=== PATIENT | female | born 1980 | race American Indian/Alaskan Native ===

== ENCOUNTER 2021-02-01 05:54 | Emergency (ER) | payer SELFPAY ==
[2021-02-01] MEDS ORDERED: ASPIRIN 325 MG TAB PO ONE (06:18)
--- NOTE | 2021-02-01 06:28 | Emergency Department Report ---
ED Chest Pain HPI - General Chief Complaint: Chest Pain Stated Complaint: WEAKNESS Time Seen by Provider: 02/01/21 06:23 Source: patient Mode of arrival: Ambulatory Limitations: No Limitations - History of Present Illness Initial Comments: Chief complaint: "Ever so often my potassium drops. I feel terrible." HPI: This is a 40-year-old female with a history of anemia hypokalemia, uterine polyps who presents with chest pain abdominal pain General malaise since this morning. Patient wasn't her normal state of health yesterday. She developed chest pain this morning. She felt like there is a gas bubble in the center of her chest. Mild discomfort without radiation. She denies palpitations. She denies near syncope. This morning she also developed cramping abdominal pain with vaginal bleeding. Last menstrual period 2 weeks ago which lasted 7 days. She normally has regular menstrual cycles. Cramping sore feeling in her abdomen. Patient exposure to Covid fever headache cough vomiting diarrhea. She does not have she did not have exposure to Covid-19 MD Complaint: chest pain -: Gradual, This morning Onset: during rest Pain Location: substernal Severity: moderate Severity scale (0 -10): 5 Quality: dull Consistency: constant Improves With: nothing Worsens With: nothing - Related Data Allergies Allergy/AdvReac Type Severity Reaction Status Date / Time duloxetine [From Cymbalta] Allergy Hives Verified 02/01/21 06:12 Heart Score - HEART Score History: Slightly suspicious EKG: Normal Age: < 45 Risk factors: No known risk factors Troponin: < normal limit HEART Score: 0 ED Review of Systems ROS: Stated complaint: WEAKNESS Other details as noted in HPI Comment: All other systems reviewed and negative Constitutional: malaise. denies: fever Respiratory: denies: cough, shortness of breath Cardiovascular: chest pain Gastrointestinal: abdominal pain Genitourinary: abnormal menses ED Past Medical Hx - Past Medical History Previous Medical History?: Yes Additional medical history: Anemia. Hypokalemia - Surgical History Past Surgical History?: Yes Additional Surgical History: Left salpingectomy. Uterine polyps - Social History Smoking Status: Never Smoker Substance Use Type: Alcohol (Occasional alcohol use) ED Physical Exam - General Limitations: No Limitations General appearance: alert, in no apparent distress - Head Head exam: Present: atraumatic, normocephalic - Eye Eye exam: Present: normal appearance - ENT ENT exam: Present: normal orophraynx, mucous membranes moist - Neck Neck exam: Present: normal inspection, full ROM - Respiratory Respiratory exam: Present: normal lung sounds bilaterally. Absent: respiratory distress, wheezes, rales, rhonchi - Cardiovascular Cardiovascular Exam: Present: regular rate, normal rhythm, normal heart sounds. Absent: systolic murmur, diastolic murmur, rubs, gallop - GI/Abdominal GI/Abdominal exam: Present: soft, normal bowel sounds. Absent: distended, tenderness, guarding, rebound - Extremities Exam Extremities exam: Present: normal inspection - Neurological Exam Neurological exam: Present: alert, oriented X3 - Psychiatric Psychiatric exam: Present: normal affect, normal mood - Skin Skin exam: Present: warm, dry, intact, normal color. Absent: rash ED Course Vital Signs 02/01/21 02/01/21 02/01/21 06:06 06:35 06:40 Temperature 98.3 F Pulse Rate 105 H 74 Respiratory 16 11 L 18 Rate Blood Pressure 119/89 145/84 O2 Sat by Pulse 100 100 Oximetry ED Medical Decision Making - Lab Data Result diagrams: 02/01/21 06:46 02/01/21 06:46 - EKG Data -: EKG Interpreted by Me EKG shows normal: sinus rhythm, axis, intervals, QRS complexes, ST-T waves Rate: normal - EKG Data Interpretation: normal EKG 02/01/21 06:27 EKG obtained 0622 EKG interpreted by me Rate 80 bpm normal sinus rhythm normal rate normal axis normal intervals no ST elevation no ST-T signs of ischemia normal EKG - Medical Decision Making One. Chest pain: Atypical for ACS, suspect GERD troponin x 2 negative. I do not feel that outpatient cardiology is necessary at this time. Patient with benefit from outpatient medicine physician evaluation. She was referred to internal medicine physician. Two. Abdominal pain: Dysmenorrhea, patient referred to DIRECTOR OF [employer]CIAL [employer]ANNING prescription for [place] [employer]. History of hypokalemia normal potassium 3.8 today Constellation of symptoms possibly due to COVID-19. I asked patient to either self isolate for the next few days until her symptoms subside or obtain outpatient testing. CBC chemistry troponin within normal limits. hCG negative. Critical care attestation.: If time is entered above; I have spent that time in minutes in the direct care of this critically ill patient, excluding procedure time. ED Disposition Clinical Impression: Generalized weakness, Chest pain, Dysfunctional uterine bleeding, History of hypokalemia Disposition: - TO HOME OR SELFCARE Is pt being admited?: No Does the pt Need Aspirin: No Condition: Stable Instructions: Nonspecific Chest Pain, Adult, Abnormal Uterine Bleeding, [id number] Referrals: MATEO PORRAS MD [Staff Physician] - 3-5 Days FREDDIE FONTANEZ MD [Staff Physician] - 3-5 Days
[2021-02-01] MEDS ORDERED: MORPHINE 4 MG/1 ML INJ IV ONE (06:35)
[2021-02-01] MEDS ORDERED: POTASSIUM CHLORIDE ER 20 MEQ TAB PO ONE (06:35)
[2021-02-01] MEDS ORDERED: PANTOPRAZOLE 40 MG INJ IV ONE (06:35)
[2021-02-01] MEDS ORDERED: ONDANSETRON 4 MG/2 ML INJ IV ONE (06:35)
[2021-02-01 06:42] VITALS: BP 145/84
[2021-02-01 07:07] LABS: Basophils # (Auto) 0.1 K/mm3 (0.0-0.1); Basophils % (Auto) 1.1 % (0.0-1.8); Eosinophils % (Auto) 0.4 % (0.0-4.3); Hemoglobin 10.2 gm/dl (10.1-14.3); Lymphocytes % (Auto) 39.5 % (13.4-35.0); Mean Corpuscular HGB Conc 32 % (30-34); Mean Corpuscular Volume 76 fl (79-97); Monocytes # (Auto) 0.3 K/mm3 (0.0-0.8); Monocytes % (Auto) 5.9 % (0.0-7.3); Platelet Count 347 K/mm3 (140-440); Red Blood Count 4.19 M/mm3 (3.65-5.03); Red Cell Distribution Width 18.5 % (13.2-15.2)
[2021-02-01 07:28] LABS: Blood Urea Nitrogen 6 mg/dL (7-17); Calcium 8.3 mg/dL (8.4-10.2); Hemolysis Index 20
[2021-02-01] MEDS ORDERED: NAPROXEN 500 MG TAB PO SCH (07:30)
[2021-02-01] MEDS ORDERED: NAPROXEN 500 MG TAB PO STA (07:41)
[2021-02-01 07:43] LABS: BUN/Creatinine Ratio 10
== END 2021-02-01 07:51 | disposition home or self-care (01) ==
LOC: ED 05:54
DX: R07.89 Other chest pain (principal); R53.1 Weakness; N93.8 Other specified abnormal uterine and vaginal bleeding; E87.6 Hypokalemia; Z98.890 Other specified postprocedural states; Z88.8 Allergy status to other drugs, medicaments and biological substances
CPT/HCPCS: 36415; 80048; 84484; 84703; 85025; 93005; 99283; C9113; J2270; J2405